=== PATIENT | male | born 1965 | race Caucasian/White ===

== ENCOUNTER 2017-08-03 14:57 | Emergency (ER) | payer SELFPAY ==
[2017-08-03 15:24] VITALS: BP 136/88
--- NOTE | 2017-08-03 16:00 | RAD ---
INDICATION: Chronic left arm pain in a patient that report multiple traumas to left arm TECHNIQUE: 2 views of the left forearm were obtained. FINDINGS: Cortical irregularity at the mid radius and ulna are consistent with remote healed fractures. Otherwise the bones are normal alignment. Joint spaces appear maintained. No fracture is seen. IMPRESSION: Appearance of remote, healed mid left radius and ulna fractures without radiographically apparent acute abnormality. If the patient's symptoms persist, follow-up imaging is recommended.
--- NOTE | 2017-08-03 18:20 | ED ---
Upper Extremity Pain - HPI Summary HPI Summary: Patient presents to the ED with left forearm pain x several years with worsening symptoms x 2 days. He states his gf may have laid on the arm and caused worsening pain, but wants to make sure he does not have a fracture. He states several years ago he sustained an injury to the arm and fractured both the ulna and the radius. He has had pain since that time. Denies numbness, tingling, temperature or color changes to the area. Pulses +2 bilaterally and cap refill < 2 sec. He has used TENS units, heating pads, ice, ibuprofen and uses a brace without help. He states he had been taking opioids for his back for years, but wanted to get off them. He stopped taking them 2 months ago and has been feeling increasing pain since that time. He states the opioids must have masked the pain. The brace and heat improve the symptoms, rotation at the elbow makes the pain worse. Denies hand or elbow pain. Denies allergies. Lives with gf. - History of Current Complaint Chief Complaint: EDExtremityUpper Stated Complaint: LT ARM PAIN Time Seen by Provider: 08/03/17 15:15 Hx Obtained From: Patient Mechanism Of Injury: Unknown Onset/Duration: Started Weeks Ago Timing: Constant Severity Initially: Moderate Severity Currently: Severe Pain Location: Arm Character: Aching Aggravating Factor(s): Movement, Internal/External Rotation Alleviating Factor(s): Rest, Heat Associated Signs & Symptoms: Positive: Negative Related History: Dominant Hand Right - Risk Factors Non-Orthopedic Risk Factor: Negative DVT Risk Factors: Negative Septic Arthritis Risk Factor: Negative Compartment Syndrome Risk Factors: Pain - Allergies/Home Medications Allergies/Adverse Reactions: Allergies Allergy/AdvReac Type Severity Reaction Status Date / Time No Known Allergies Allergy Verified 08/03/17 15:06 PMH/Surg Hx/FS Hx/Imm Hx Previously Healthy: Yes - Immunization History Hx Pertussis Vaccination: No Immunizations Up to Date: Unable to Obtain/Confirm Infectious Disease History: No Infectious Disease History: Denies: Traveled Outside the [place] in Last 30 Days - Social History Occupation: Employed Full-time Lives: With Family Alcohol Use: unknown Alcohol Amount: unknown Hx Substance Use: No Substance Use Type: Reports: None Hx Tobacco Use: Yes Smoking Status (MU): Unknown if Ever Smoked Review of Systems Constitutional: Negative Negative: Fever, Chills, Fatigue Cardiovascular: Negative Respiratory: Negative Negative: Abdominal Pain, Vomiting, Diarrhea, Nausea Positive: no symptoms reported, see HPI Positive: Arthralgia - right forearm pain Skin: Negative Negative: Weakness, Paresthesia, Numbness Psychological: Normal All Other Systems Reviewed And Are Negative: Yes Physical Exam Triage Information Reviewed: Yes Vital Signs On Initial Exam: Initial Vitals Temp Pulse Resp BP Pulse Ox 97.8 F 88 16 136/88 100 08/03/17 15:03 08/03/17 15:03 08/03/17 15:03 08/03/17 15:03 08/03/17 15:03 Vital Signs Reviewed: Yes Appearance: Positive: Well-Appearing, Well-Nourished Skin: Positive: Warm, Skin Color Reflects Adequate Perfusion Head/Face: Positive: Normal Head/Face Inspection Eyes: Positive: EOMI, RISHI Neck: Positive: Supple, No Lymphadenopathy Respiratory/Lung Sounds: Positive: Clear to Auscultation, Breath Sounds Present Cardiovascular: Positive: Normal, RRR, Pulses are Symmetrical in both Upper and Lower Extremities Musculoskeletal: Positive: Strength/ROM Intact Neurological: Positive: Sensory/Motor Intact, Alert, Oriented to Person Place, Time, Speech Normal Diagnostics - Vital Signs Vital Signs Temp Pulse Resp BP Pulse Ox 08/03/17 15:03 97.8 F 88 16 136/88 100 - Laboratory Lab Statement: Any lab studies that have been ordered have been reviewed, and results considered in the medical decision making process. Course/Dx - Course Course Of Treatment: Patient evaluated for arm pain. He wants to assure nothing is fractured d/t increasing pain x 1 month. He notes to discontinuing his opioid use for his back pain 2 months ago and pain has been worsening since that time. IMPRESSION: Appearance of remote, healed mid left radius and ulna fractures without. radiographically apparent acute abnormality. If the patient 's symptoms persist, follow-up imaging is recommended. Patient is referred to orthopedics for further workup. He is given 3 days worth of pain management. Patient is OK for discharge. - Diagnoses Differential Diagnosis/HQI/PQRI: Positive: Contusion, Fracture (Open), Fracture (Closed) Provider Diagnoses: Arm pain, left Discharge - Discharge Plan Condition: Stable Disposition: HOME Prescriptions: oxyCODONE TAB* [Roxycodone TAB 5 mg*] 5 mg PO Q4H PRN #18 tab MDD 6 PRN Reason: Pain Patient Education Materials: Arm Pain (ED) Referrals: Matthew Callejas [Primary Care Provider] - Juanito Madison MD [Medical Doctor] - Additional Instructions: Follow up with Dr. Madison or Dr. Prado Call office Saturday for appt I have given you oxycodone for pain. Use this sparingly and only if pain is severe and not well controlled with Ibuprofen. Use only as directed Moist heat to the arm several times per day
== END 2017-08-03 17:13 | disposition home or self-care (01) ==
LOC: ED 14:57
DX: M79.602 Pain in left arm (principal)
CPT/HCPCS: 99282